=== PATIENT | male | born 1985 | race African-American/Black ===

== ENCOUNTER 2016-07-19 03:44 | Emergency (ER) | payer OTHER ==
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
== END 2016-07-19 04:32 | disposition home or self-care (01) ==
LOC: CED 03:44
DX: S62.291A Other fracture of first metacarpal bone, right hand, initial encounter for closed fracture (principal); F17.210 Nicotine dependence, cigarettes, uncomplicated; W50.0XXA Accidental hit or strike by another person, initial encounter; Y92.009 Unspecified place in unspecified non-institutional (private) residence as the place of occurrence of the external cause
CPT/HCPCS: 29125; 73090; 73130; 73630; 99284